=== PATIENT | female | born 1980 | race Caucasian/White ===

== ENCOUNTER 2018-01-04 08:28 | Outpatient (CLI) | payer OTHER, SELFPAY ==
[2018-01-04 10:08] LABS: Calcium 9.3 mg/dL (8.5-10.1); FREE T4 0.76 ng/dL (0.76-1.46); TSH 4.16 uIU/mL (0.358-3.74)
[2018-01-04 16:36] LABS: T3, Total 144 ng/dl (97-169)
[2018-01-07 09:16] LABS: Parathyroid Hormone,Intact 35 pg/ml (19-88)
== END 2018-01-04 08:48 ==
PROVIDERS: PCP Nurse Practitioner Family; Visit Provider Nurse Practitioner Family
DX: E23.0 Hypopituitarism (principal)
CPT/HCPCS: 36415; 82310; 83970; 84439; 84443; 84480

== ENCOUNTER 2018-02-21 10:03 | Outpatient (CLI) | payer OTHER, SELFPAY ==
[2018-02-21 12:27] LABS: TSH (W/Ref FT4) 2.69 uIU/mL (0.358-3.74)
[2018-02-22 11:23] LABS: Thyroglobulin Antibody 20 U/mL (<61); Thyroperoxidase Antibody <28 U/mL (<61)
== END 2018-02-21 10:23 ==
PROVIDERS: PCP Nurse Practitioner Family; Visit Provider Nurse Practitioner Family
DX: E23.0 Hypopituitarism (principal)
CPT/HCPCS: 36415; 86376; 84443

== ENCOUNTER 2021-01-25 12:24 | Outpatient (REF) | payer OTHER, SELFPAY ==
--- NOTE | 2021-01-25 09:00 | PAPFT_PTH ---
PATIENT: Priscilla Garcia LOC: LOCATED WITHIN [facility]#:[id number] AGE/SX: 40/F ROOM: RE01/25/[address]: Juan Clemente : 1980 BED: DIS: 01/25/2021 SPEC #: [id number] RECD: 01/26/21 16:25 STATUS: LEONIDES RERacheal #: [id number] HORACE: 01/25/21 09:[address] Cytology RECD BY: Marisol Nicole ENTERED: 01/26/21 16:25 SP TYPE: PAPFT OTHR DR: Ava Pierre Tissues: 1 - CX/ENDOCX FOR PAP SMEARS Procedures: PAP THIN PREP/[facility] Screening HPV DNA PROBE Comments: [id number] (CHLAMYDIA/GC)
[2021-01-28 09:41] LABS: Varicella IgG Antibody Positive (See Note)
[2021-01-28 09:43] LABS: Measles IgG Antibody Positive (See Note)
[2021-01-28 09:48] LABS: Mumps Antibody IgG Positive (See Note); Rubella IgG Ab (UVM) Positive (See Note)
[2021-01-28 14:52] LABS: Chlamydia Result Negative (Negative); GC Result Negative (Negative)
== END 2021-01-25 12:25 | disposition home or self-care (01) ==
LOC: NCHCN 12:24
PROVIDERS: PCP Nurse Practitioner Family; Visit Provider Nurse Practitioner Family
DX: Z13.89 Encounter for screening for other disorder (principal); Z12.4 Encounter for screening for malignant neoplasm of cervix; Z11.51 Encounter for screening for human papillomavirus (HPV)
CPT/HCPCS: 86787; 87491; 87591; 88142; 86735; 86762; 86765; 87624

== ENCOUNTER 2022-03-13 01:50 | Outpatient (CLI) | payer OTHER, SELFPAY ==
--- NOTE | 2022-03-13 | DI.MAMMO_ITS ---
Exam(s) MAMMO SCREENING EXAM: MAMMO SCREENING CLINICAL HISTORY: SCREENING, Z12.39. TECHNIQUE: Bilateral full field digital CC and MLO mammographic images were obtained with 3D tomosyn thesis and utilizing computer aided detection (CAD). COMPARISON: None. Baseline examination. FINDINGS: Masses/Architectural Distortion: None seen. Microcalcifications: No suspicious pleomorphic-type are seen. Scattered benign calcifications greater in left breast. Skin Thickening/Nipple Retraction: None. IMPRESSION: 1. No significant interval change with no specific features of malignancy noted. 2. Unless there is more urgent need, annual screening mammography is recommended, as per [place] [employer] guidelines. BI-RADS Category 2 - Benign Findings Breast Density - Category D - extremely dense Breast Density Category D: The mammogram demonstrates the patient's breast tissue is dense. Dense benjamín ast tissue is very common and is not abnormal but dense breast tissue can make it harder to find canc er on a mammogram. Also, dense breast tissue may increase their breast cancer risk. This information about the result of the mammogram report was provided to the patient to raise their awareness. Use th is report when you speak with the patient about their risks for breast cancer, which includes their f amily history. At that time, you may recommend for more screening tests (Ultrasound or MRI) as they m ight be useful based on their risk. A negative radiographic report should not delay biopsy if a dominant or clinically suspicious mass is present. Up to ten percent of cancers are not identified on mammography. A negative report may reinforce clinical impression. Adenosis and dense breasts may obscure an underlying neoplasm. False positive reports average 6 to 10%.
== END 2022-03-13 02:10 ==
PROVIDERS: PCP Nurse Practitioner Family; Visit Provider Nurse Practitioner Family
DX: Z12.31 Encounter for screening mammogram for malignant neoplasm of breast (principal)
CPT/HCPCS: 77063; 77067

== ENCOUNTER 2024-04-04 11:53 | Outpatient (REF) | payer OTHER, SELFPAY ==
[2024-04-04 18:55] LABS: Anion Gap 7.2 mmol/L (3-11); BUN 15 mg/dL (7-18); CO2 29.8 mmol/L (21.0-32.0); CREATININE 0.9 mg/dL (0.55-1.02); Calcium 9.5 mg/dL (8.5-10.1); Calculated LDL 102 mg/dL (<100); Chloride 106 mmol/L (98-107); Cholesterol 183 mg/dL (<200); Estimated GFR 81.86 (mL/min/1.73m2); Glucose 93 mg/dL (74-106); HDL Cholesterol 75 mg/dL (40-60); Potassium 4.6 mmol/L (3.5-5.1); Sodium 143 mmol/L (136-145); Triglyceride 33 mg/dL (<150)
== END 2024-04-04 11:54 | disposition home or self-care (01) ==
LOC: NCHCN 11:53
PROVIDERS: PCP Nurse Practitioner Family; Visit Provider Nurse Practitioner Family
DX: Z13.1 Encounter for screening for diabetes mellitus (principal); Z13.220 Encounter for screening for lipoid disorders
CPT/HCPCS: 80048; 80061

== ENCOUNTER 2024-08-11 15:04 | Outpatient (CLI) | payer OTHER, SELFPAY ==
[2024-08-13 12:42] LABS: TB Interpretation Negative (Negative); TB1 Ag minus Nil 0.01 IU/mL
== END 2024-08-11 15:05 | disposition home or self-care (01) ==
LOC: LBO 15:07
PROVIDERS: PCP Nurse Practitioner Family; Visit Provider Nurse Practitioner Family
DX: Z11.1 Encounter for screening for respiratory tuberculosis (principal)
CPT/HCPCS: 36415; 86480